=== PATIENT | female | born 1990 | race Two or more races ===

== ENCOUNTER 2018-08-02 17:12 | Emergency (ER) | payer SELFPAY ==
[~2018-08-02] VITALS: Ht 154.9 cm; Wt 59.6 kg
[2018-08-02 17:21] VITALS: BP 106/61
[2018-08-02] MEDS ORDERED: HYDROcodone/APAP 5/325 TABLET ONE (17:52)
[2018-08-02] MEDS ORDERED: HYDROcodone/APAP 5/325 TABLET PO ONE (18:00)
[2018-08-02] MEDS ORDERED: PLEASE ENTER ALLERGIES MC SCH (18:00)
[2018-08-02] MEDS ORDERED: ACETAMINOPHEN 325 MG TABLET PO ONE (18:00)
== END 2018-08-02 19:24 | disposition home or self-care (01) ==
LOC: ED 19:18
DX: S60.011A Contusion of right thumb without damage to nail, initial encounter (principal); X58.XXXA Exposure to other specified factors, initial encounter; Y93.89 Activity, other specified; Y92.89 Other specified places as the place of occurrence of the external cause; Y99.8 Other external cause status
CPT/HCPCS: 29125; 99284